=== PATIENT | female | born 1975 | race Caucasian/White ===

== ENCOUNTER 2021-03-15 09:48 | Emergency (ER) | payer MEDICAID ==
[~2021-03-15] VITALS: Ht 154.9 cm; Wt 86.4 kg
[2021-03-15 09:52] VITALS: BP 132/93
[2021-03-15] MEDS ORDERED: clonazePAM 1mg tablet PO ONE (10:35)
== END 2021-03-15 11:16 | disposition home or self-care (01) ==
LOC: ER 09:49
DX: M86.9 Osteomyelitis, unspecified (principal); Z76.0 Encounter for issue of repeat prescription
CPT/HCPCS: 99283

== ENCOUNTER 2021-03-20 08:17 | Emergency (ER) | payer MEDICAID ==
[~2021-03-20] VITALS: Ht 154.9 cm; Wt 83.3 kg
[2021-03-20 08:28] VITALS: BP 129/69
[2021-03-20 11:19] LABS: BASOPHILS % (AUTO) 0.8 % (0-1); EOSINOPHILS % (AUTO) 0.8 % (0-6); HEMATOCRIT 31.7 % (35.0-45.0); LYMPHOCYTES # (AUTO) 1.4 X10'3 (1.1-4.8); MEAN CORPUSCULAR HEMOGLOBIN 30.2 PG (27.0-31.0); MEAN CORPUSCULAR HGB CONC 34.7 g/dL (33.0-36.5); MEAN PLATELET VOLUME 9.2 FL (7.4-10.4); MONOCYTES # (AUTO) 0.4 X10'3 (0-0.9); MONOCYTES % (AUTO) 8.9 % (2-12); NEUTROPHILS # (AUTO) 2.6 X10'3 (1.8-7.7); NEUTROPHILS % (AUTO) 58.5 % (42-75); PLATELET COUNT 274 X10'3 (140-440); RED BLOOD COUNT 3.64 X10'6 (4.20-5.60); RED CELL DISTRIBUTION WIDTH 13.9 % (11.5-14.5); WHITE BLOOD COUNT 4.4 X10'3 (4.5-11.0)
[2021-03-20 11:44] LABS: ALANINE AMINOTRANSFERASE 31 U/L (12-78); ALBUMIN 3.7 G/DL (3.4-5.0); ALBUMIN/GLOBULIN RATIO 0.7 (1.1-1.5); ALKALINE PHOSPHATASE 241 IU/L (46-116); ANION GAP 8 (8-16); ASPARTATE AMINO TRANSFERASE 20 U/L (10-37); BILIRUBIN,TOTAL 0.3 MG/DL (0.1-1.0); BLOOD UREA NITROGEN 13 MG/DL (7-18); BUN/CREATININE RATIO 16.9 (6.6-38.0); CALCIUM 8.9 MG/DL (8.5-10.1); CHLORIDE 105 MMOL/L (99-107); CREATININE 0.77 MG/DL (0.40-0.90); GLUCOSE 91 MG/DL (70-104); POTASSIUM 3.9 MMOL/L (3.5-5.1); SODIUM 138 MMOL/L (135-145); TOTAL CARBON DIOXIDE 24.6 MMOL/L (24-32); TOTAL PROTEIN 8.8 G/DL (6.4-8.2); eGFR 80 ML/MIN
[2021-03-20] MEDS ORDERED: LISI10TA27 PO (12:55)
== END 2021-03-20 14:42 | disposition home or self-care (01) ==
LOC: ER 08:17
DX: I10 Essential (primary) hypertension (principal); R11.0 Nausea; R53.1 Weakness; R06.02 Shortness of breath; F11.90 Opioid use, unspecified, uncomplicated; Z56.0 Unemployment, unspecified; Z59.00 Homelessness unspecified; Z79.899 Other long term (current) drug therapy
CPT/HCPCS: 36415; 71045; 80053; 83880; 84484; 85025; 93005; 99285

== ENCOUNTER 2021-09-01 18:28 | Emergency (ER) | payer MEDICAID ==
[~2021-09-01] VITALS: Ht 154.9 cm; Wt 75.0 kg
[~2021-09-01 18:28] MED LIST: LISI10TA27 PO
[2021-09-01 18:36] VITALS: BP 128/71
[2021-09-01] MEDS ORDERED: IBUP-1985 PO (20:08)
[2021-09-01] MEDS ORDERED: AMOX-101 PO (20:08)
[2021-09-01] MEDS ORDERED: amoxicillin 250mg capsule PO ONE (20:10)
== END 2021-09-01 20:31 | disposition home or self-care (01) ==
LOC: ER 18:28
DX: K08.89 Other specified disorders of teeth and supporting structures (principal); K02.9 Dental caries, unspecified; F11.90 Opioid use, unspecified, uncomplicated; Z56.0 Unemployment, unspecified; Z59.00 Homelessness unspecified; Z79.2 Long term (current) use of antibiotics; Z79.899 Other long term (current) drug therapy
CPT/HCPCS: 99283

== ENCOUNTER 2022-04-11 09:37 | Emergency (ER) | payer MEDICAID ==
[~2022-04-11] VITALS: Ht 156.2 cm; Wt 72.7 kg
[~2022-04-11 09:37] MED LIST changes: +IBUP-1985 PO
[2022-04-11 10:21] VITALS: BP 142/69
[2022-04-11] MEDS ORDERED: ketorolac trometh. 30mg/ml inj. IM ONE (14:05)
[2022-04-11] MEDS ORDERED: amox tr/potassium clavulanate 875/125mg TAB PO ONE (14:05)
[2022-04-11] MEDS ORDERED: IBUP-1986 PO (14:08)
[2022-04-11] MEDS ORDERED: AMOX-117 PO (14:08)
== END 2022-04-11 14:47 | disposition home or self-care (01) ==
LOC: ER 09:37
DX: K08.89 Other specified disorders of teeth and supporting structures (principal); Z59.00 Homelessness unspecified; Z56.0 Unemployment, unspecified
CPT/HCPCS: 96372; 99283; J1885

== ENCOUNTER 2022-05-13 05:24 | Emergency (ER) | payer MEDICAID ==
[~2022-05-13] VITALS: Ht 154.9 cm; Wt 54.5 kg
[~2022-05-13 05:24] MED LIST changes: +IBUP-1986 PO
[2022-05-13 07:48] LABS: CHLORIDE 100 MMOL/L (99-107); POTASSIUM 3.7 MMOL/L (3.5-5.1); SODIUM 136 MMOL/L (135-145)
[2022-05-13 07:50] LABS: BASOPHILS % (AUTO) 0.2 % (0-1); EOSINOPHILS % (AUTO) 0.1 % (0-6); HEMOGLOBIN 11.5 g/dl (12.0-16.0); LYMPHOCYTES % (AUTO) 25.9 % (21-51); MEAN CORPUSCULAR HEMOGLOBIN 26.5 PG (27.0-31.0); MEAN CORPUSCULAR HGB CONC 32.8 g/dL (33.0-36.5); MEAN CORPUSCULAR VOLUME 80.6 FL (78-98); MEAN PLATELET VOLUME 9.3 FL (7.4-10.4); MONOCYTES # (AUTO) 0.5 X10'3 (0-0.9); MONOCYTES % (AUTO) 12.1 % (2-12); NEUTROPHILS # (AUTO) 2.4 X10'3 (1.8-7.7); NEUTROPHILS % (AUTO) 61.7 % (42-75); PLATELET COUNT 178 X10'3 (140-440); RED BLOOD COUNT 4.34 X10'6 (4.20-5.60); RED CELL DISTRIBUTION WIDTH 15.7 % (11.5-14.5)
[2022-05-13 07:51] LABS: ALANINE AMINOTRANSFERASE 17 U/L (12-78); ALBUMIN/GLOBULIN RATIO 1.3 (1.1-1.5); ALKALINE PHOSPHATASE 81 IU/L (46-116); ANION GAP 12 (8-16); ASPARTATE AMINO TRANSFERASE 15 U/L (10-37); BILIRUBIN,TOTAL 0.5 MG/DL (0.1-1.0); BLOOD UREA NITROGEN 8 MG/DL (7-18); CALCIUM 9.6 MG/DL (8.5-10.1); ETHANOL < 0.010 GM/DL (0.0-0.010); GLUCOSE 108 MG/DL (70-104); TOTAL CARBON DIOXIDE 23.7 MMOL/L (24-32); TOTAL PROTEIN 8.8 G/DL (6.4-8.2); eGFR 77 ML/MIN
--- NOTE | 2022-05-13 08:10 | NUR ---
PT STATES WAS AT [facility] EARLIER TODAY DUE TO HAVING HAIR DYE IN HER HAIR. PT STATES THIS HAS HAPPENED BEFORE DUE TO INCREASE IN [place]. PT STATES THINKS THE HAIR DYE FUMES CAUSED OUTBREAK AND SHE IS NOT SURE WHY SHE IS IN THE HOSPITAL. PT COOPERATIVE AT THIS TIME. WILL CONTINUE TO MONITOR.
[2022-05-13 09:56] LABS: URINE HCG NEGATIVE (NEG)
[2022-05-13 10:03] LABS: URINE AMPHETAMINE SCREEN NEGATIVE (Neg); URINE BARBITUATE SCREEN NEGATIVE (Neg); URINE BENZODIAZEPINES SCREEN NEGATIVE (Neg); URINE CANNABINOID SCREEN POSITIVE (Neg); URINE COCAINE SCREEN NEGATIVE (Neg); URINE METHADONE SCREEN NEGATIVE (Neg); URINE OPIATE SCREEN NEGATIVE (Neg); URINE PHENCYCLIDINE SCREEN NEGATIVE (Neg)
--- NOTE | 2022-05-13 10:43 | NUR ---
PT GIVEN WATER PER REQUEST
--- NOTE | 2022-05-13 12:01 | NUR ---
PT TAKEN OVER TO OVERFLOW. REPORT GIVEN TO RN
--- NOTE | 2022-05-13 12:05 | NUR ---
Patient brought over to bed 21. Patient refusing to eat lunch.
--- NOTE | 2022-05-13 12:06 | NUR ---
tech faxed pt packet to [facility]
--- NOTE | 2022-05-13 12:17 | NUR ---
breaking RN for lunch. Received report
--- NOTE | 2022-05-13 14:24 | NUR ---
[facility] here to evaluate patient.
--- NOTE | 2022-05-13 15:21 | NUR ---
Patient reports that she was on medications, but has not taken them in a while. Patient states she has a history of epilepsy. Patient was going to go into a recovery home, but never made it. Patient is oriented to person. Patient is guarded.
--- NOTE | 2022-05-13 15:38 | NUR ---
Patient was down on the ground with her eyes closed. Patient got up on her feet and started saying "amen, amen". Patient appears to be in an altered state.
[2022-05-13] MEDS ORDERED: BUPR1TAB48 PO (15:57)
[2022-05-13] MEDS ORDERED: BUSP15TA3 PO (15:57)
[2022-05-13] MEDS ORDERED: DULO20CA18 PO (15:57)
[2022-05-13] MEDS ORDERED: ZOLP10TA PO (15:57)
[2022-05-13] MEDS ORDERED: ALBU2.5V10 PO (15:57)
[2022-05-13] MEDS ORDERED: albuterol 2.5 MG/3 ML nebule NEB PRN (16:10)
[2022-05-13 17:27] LABS: CLARITY,URINE CLOUDY (Clear); COLOR,URINE YELLOW (Yellow); GLUCOSE, URINE NEGATIVE (Neg); KETONES,URINE TRACE mg/dl (Neg); LEUKOCYTE ESTERASE ,URINE NEGATIVE (Neg); NITRITES, URINE NEGATIVE (Neg); OCCULT BLOOD,URINE NEGATIVE (Neg); PROTEIN,URINE NEGATIVE (Neg); UROBILINOGEN,URINE 0.2 E.U/dL (0.2-1.0)
[2022-05-13 17:42] LABS: UA COLLECTION TYPE NON-SPECIFIED
[2022-05-13 17:44] LABS: CAL OXALATE CRYSTALS 3+ /HPF (NEGATIVE)
[2022-05-13 17:45] LABS: BACTERIA,URINE FEW /HPF (Neg); MUCUS STRANDS MODERATE /LPF (Neg); RBC,URINE 0-2 /HPF (0-2); SQUAMOUS EPITHELIAL CELL,UR MODERATE /LPF (FEW); WBC,URINE 0-4 /HPF (0-4)
--- NOTE | 2022-05-13 17:50 | NUR ---
Faxed over TSH and U/A to [facility].
--- NOTE | 2022-05-13 18:32 | NUR ---
PT IS SITTING IN BED IN ER ROOM 13. PT IS AWAKE AND APPEARS TO BE IN NO DISRESS AT THIS TIME.
--- NOTE | 2022-05-13 20:00 | NUR ---
PT IS ATTEMPTING TO WANDER THE HALLWAY. PT REDIRECTED TO ROOM AND INFORMED SHE CAN NOT LEAVE HER ROOM. PT RELUCTANTLY RETURNED TO ROOM.
--- NOTE | 2022-05-13 20:36 | NUR ---
PT REFUSING TO ANSWER MANY OF THE GENERAL ASSESSMENT QUESTIONS.
[2022-05-13] MEDS ORDERED: OLANZapine 2.5MG tablet PO ONE (20:40)
--- NOTE | 2022-05-13 20:45 | NUR ---
I agree with Alexandria Craft assessment.
[2022-05-13] MEDS: duloxetine 20mg capsule.DR PO SCH (20:51)
[2022-05-13] MEDS: busPIRone 15mg tablet PO SCH (20:51)
[2022-05-13] MEDS ORDERED: zolpidem 5mg tablet PO PRN (21:00)
--- NOTE | 2022-05-13 21:59 | NUR ---
PT SITTING IN BED AFTER RECIEVING EVENING MEDS. PT VERY APPREHENSIVE TO TAKE MEDS.
--- NOTE | 2022-05-13 22:07 | NUR ---
PT ON THE GROUND FAKING SEIZURE ACTIVITY. PT PLACED BACK IN BED.
--- NOTE | 2022-05-13 22:17 | NUR ---
pt was laying on the floor, put back to bed. Now she has crawled out of bed a few times. Informed her that she needs to stay in bed and behave. Security is at the doorway. Informed the patient that since I have been here, she has tried to run away multiple times and that this is not tolerated and that if her behavior continues she will received medications and possible restraints to keep her safe. Sitters have been at her doorway all night and staff and sitters have had to intervene since we arrived. She didn't want to take her HS meds earlier from her nurse, she did take them for me. There are times she has eye contact and other times not. When we picked her from the floor she did try to hit myself and Lazara but we were able to not have that occur. The pt shook her head to lay in bed and be quiet. I covered her up. Sitter at doorway.
--- NOTE | 2022-05-13 22:20 | NUR ---
SECURITY CALLED FOR A STAND BY WHILE PT WAS PLACED BACK IN BED AFTER GETTING OUT OF BED AGAIN. PT PLACED BACK IN BED AND INFORMED THAT SHE IS TO STAY IN BED.
--- NOTE | 2022-05-14 05:59 | NUR ---
PT REMOVED FROM RESTRAINTS.
--- NOTE | 2022-05-14 06:30 | NUR ---
Pt. ambulated over from the main ER accompanied by Nadeem. She is laying in bed at this time and appears to be resting comfortably.
[2022-05-14] MEDS ORDERED: ZUBSOLV PO SCH (08:00)
[2022-05-14] MEDS: busPIRone 15mg tablet PO SCH ×3 (08:00→21:06)
[2022-05-14] MEDS: duloxetine 20mg capsule.DR PO SCH ×3 (08:00→21:06)
--- NOTE | 2022-05-14 08:35 | NUR ---
Received a call from [facility] who is looking into taking patient, however they will call back in a couple of hours because pt. must be free from restraint X4 hours per their protocol.
--- NOTE | 2022-05-14 08:37 | NUR ---
Pt. is laying in bed on her back at this time, she refused her ordered medications and breakfast, however appears to be resting comfortably. RR are even and unlabored.
--- NOTE | 2022-05-14 09:45 | NUR ---
TSH and UA labs faxed to [facility] per their request.
--- NOTE | 2022-05-14 10:33 | NUR ---
Pt. is sitting up in bed at this time, she is observed to be responding aloud, whispering to herself. Pt. continues to refuse to take medications, but does not appear to be in any distress at this time, will continue to monitor closely.
--- NOTE | 2022-05-14 12:24 | NUR ---
Pt. up wandering on the unit and remains confused asking to talk "To her father." She was able to be redirected back to bed, but then had an elopement attempt out the frount da exit. Pt. was again redirected back to her bed where she is being encouraged to eat at this time. Pt. did accept some juices. She denies the desire to use the telephone to call her father at this time. Will continue to monitor closely.
--- NOTE | 2022-05-14 13:30 | NUR ---
Pt. was in the [facility] at [facility]. Her Translator Interpreter is Karen (extension 2). Per Karen, pt. has been in this program since 05/05/22, but left abruptly yesterday (she had been weaning off Clonazepam). Pt. was taking a medication called Zubsolv which the [facility] staff will drop off as the hospital does not carry this. Pt. has been released from the [facility] program at this point, but per Karen can reapply in 30 days. Initially Karen stated that pt's belongings would be discarded in 7 days unless she had a family member that could pick them up. However, pt. denies having anyone to do so, and this telegraphic typewriter installer called [place] back and [facility] will now hold on to all of the patient's belongings and medications. Per Karen, she would like to be notified if pt. is transferred to another facilty as she is hopeful the client will be able to come back into the program. Will endorse to staff.
--- NOTE | 2022-05-14 14:29 | NUR ---
Pt. is laying in bed at this time staring at the ceiling, will continue to monitor closely.
--- NOTE | 2022-05-14 14:35 | NUR ---
Pt's disease case manager dropped off all of her current medications and this health underwriter will reconcile them and re-complete Med Recc.
--- NOTE | 2022-05-14 15:07 | NUR ---
Pt. began yelling loudly and appeared to be speaking in a nonsensical manner. This mortgage or loan underwriter sat with pt. and provided active listening and positive encouragement. Pt. stated in a disorganized manner, "I'm going to walk with the lord!" She was able to be redirected and will continue to monitor closely.
[2022-05-14] MEDS ORDERED: LORazepam 2 mg/ml vial IM ONE ×2 (15:40→21:30)
--- NOTE | 2022-05-14 15:50 | NUR ---
Pt. continued to yell out intermittenty in a very disorganized and non-sensical manner, she was unable to be redirected. Received an order from [facility] for Ativan IM 2mg. Injection was given in the left deltoid and pt. tolerated well.
[2022-05-14] MEDS ORDERED: nicotine 14mg patch - 24hr TD ONE (16:35)
--- NOTE | 2022-05-14 16:38 | NUR ---
Pt. ambulating around the unit at this time, requires redirection at intervals r/t intrusiveness.
[2022-05-14] MEDS ORDERED: LISI10TA27 PO (17:47)
[2022-05-14] MEDS ORDERED: MONT-40 PO (17:47)
[2022-05-14] MEDS ORDERED: PANT40TA54 PO (17:47)
[2022-05-14] MEDS ORDERED: LORA10TA7 PO (17:47)
[2022-05-14] MEDS ORDERED: SENN-263 PO (17:47)
[2022-05-14] MEDS ORDERED: NICO-631 TD (17:47)
[2022-05-14] MEDS ORDERED: IBUP-1986 PO (17:47)
[2022-05-14] MEDS ORDERED: DOCU100C40 PO (17:47)
[2022-05-14] MEDS ORDERED: VENL150T3 PO (17:47)
[2022-05-14] MEDS ORDERED: NAPR-56 PO (17:47)
[2022-05-14] MEDS ORDERED: ONDA4TAB12 PO (17:47)
[2022-05-14] MEDS ORDERED: docusate sod 100mg capsule PO PRN (18:10)
--- NOTE | 2022-05-14 18:24 | NUR ---
Pt. is sitting in bed eating at this time, she continues to require redirection at intervals with effectiveness r/t intrusiveness and restlessness.
--- NOTE | 2022-05-14 18:56 | NUR ---
informed pt is up and walking towards doorway frequently. Bertha talk to the patient. She is now laying down.
--- NOTE | 2022-05-14 18:56 | NUR ---
Partha Jackson called for the patients medication list. Fax it to [phone]
--- NOTE | 2022-05-14 19:30 | NUR ---
I agree with A Alexandria Noe assessment.
[2022-05-14] MEDS ORDERED: naproxen 500mg tablet PO SCH (20:00)
[2022-05-14] MEDS ORDERED: montelukast 10mg tablet PO SCH (21:00)
[2022-05-14] MEDS: ondansetron 4mg rapidly disintigrating tab PO SCH (21:06)
[2022-05-14] MEDS: ZUBSOLV PO SCH (21:07)
--- NOTE | 2022-05-14 21:47 | NUR ---
NIGHTTIME MEDICATION WAS GIVEN TO PT, HOWEVER DUE TO INCREASED AGITATION AND CONFUSION SHE WAS NOT ABLE TO BE REDIRECTED. SECURITY WAS CALLED, AND THE EDMD WAS NOTIFIED. RESTRAINTS WERE APPLIED TO THE PT DUE TO THE PT BEHAVIOR. EDMD WAS NOTIFIED.
--- NOTE | 2022-05-14 22:18 | NUR ---
RANDOLPHTER IS WITH PT CURRENTLY. SPEAKING TO THE PT, AND ATTEMPTING TO HELP WITH THE PT REORIENTATION DUE TO ANOTHER PT SCREAMING AND NOT BEING ABLE TO BE REORIENTED. THIS TX. APPEARS TO BE EFFECTIVE. WILL CONTINUE TO MONITOR BEHAVIOR.
--- NOTE | 2022-05-14 23:05 | NUR ---
THERAPEUTIC COMMUNICATION APPEARS TO HAVE HELPED CALM THE PT DOWN. RESTRAINTS WERE REMOVED DUE TO PT BEING ABLE TO BE REDIRECTED. WILL CONTINUE TO MONITOR HER BEHAVIOR.
--- NOTE | 2022-05-15 06:45 | NUR ---
PT LAYING ON R SIDE RESTING WITH EYES CLOSED, EFFORTLESS RESPIRATIONS OBSERVED.
[2022-05-15] MEDS: ZUBSOLV PO SCH ×2 (08:00→13:00)
[2022-05-15] MEDS: nicotine 14mg patch - 24hr TD SCH ×2 (08:00→08:56)
--- NOTE | 2022-05-15 08:17 | NUR ---
ASSUMED CARE OF PT. REPORT RECEIVED FROM MIRIAM DIEHL. PT RESTING WITH EYES CLOSED, APPEARS TO SHOW NO S/S OF ACUTE DISTRESS. BED LOCKED AND LOW, IN LINE OF SIGHT.
[2022-05-15] MEDS: lisinopril 10 MG tablet PO SCH ×2 (08:52→13:47)
[2022-05-15] MEDS: pantoprazole 40mg Tablet.DR PO SCH ×2 (08:53→13:46)
[2022-05-15] MEDS: sennosides 8.6mg tablet PO SCH ×2 (08:54→13:47)
[2022-05-15] MEDS: ondansetron 4mg rapidly disintigrating tab PO SCH ×2 (08:54→13:47)
[2022-05-15] MEDS: ibuprofen 200mg tablet PO SCH ×3 (08:56→13:47)
[2022-05-15] MEDS: duloxetine 20mg capsule.DR PO SCH ×2 (08:57→13:47)
[2022-05-15] MEDS: loratadine 10mg tablet PO SCH ×2 (08:57→13:46)
[2022-05-15] MEDS: busPIRone 15mg tablet PO SCH ×3 (08:57→13:56)
[2022-05-15] MEDS: venlafaxine XR 75mg capsule (Q24H) PO SCH ×2 (09:00→13:47)
[2022-05-15 09:11] VITALS: BP_DIAS 86
--- NOTE | 2022-05-15 09:40 | NUR ---
I WOKE PT TO ASSESS HER AND GET HER VITALS. PT WAS COOPERATIVE. PT NODDED YES WHEN I ASKED HER IF SHE WILL TAKE HER PRESCRIBED MEDICATION. MEDICATION EDUCATION WAS PROVIDED AND PT WAS HANDED HER MEDICATIONS. PT HELD THE MEDICATION CUP IN HER HAND SHE ASKED ,E "WHY AM I BACK IN THE HOSPITAL?". I EXPLAINED TO HER THAT SHE HAS BEEN PLACED ON A 5150 HOLD FOR HER SAFETY, I EXPLAINED THAT ACCORDING TO WHAT I RECEIVED IN REPORT AND PER CHARTING SHE HAS HAD HALLUCINATIONS AND DID NOT SEEM TO BE PRESENT OR OF SOUND MIND. PT WAS ORIENTED TO DATE AND TIME. SHE KNEW SHE WAS IN [facility]. PT IS TEARFUL AND HESITANT TO TAKE HER MEDS. I EXPLAINED EACH MEDICATION TO HER AGAIN AND GAVE INDICATION AND SIDE EFFECTS. PT SEEMS TO BE WITHDRAWN AND REMAINS TEARFUL. PT REQUESTING TO SPEAK TO [facility] AND ASKING TO WAIT TO TAKE HER MEDS BECAUSE MANY OF THEM ARE NEW. I TOLD HER I WILL TRY TO REACH AND WILL HOLD HER MEDS FOR NOW.
--- NOTE | 2022-05-15 10:06 | NUR ---
SPOKE WITH MONIKA (NURSE FROM [facility]) REGARDING PT PLACEMENT. WAS INFORMED THAT IN ORDER FOR PT TO BE PLACED WITH THIS FACILITY SHE WILL NEED TO HAVE FULL 30 DAY SUPPLY OF HER RX ZUBSOLV (SUBOXONE). PER OUR PHARMACY SHE HAS A QUANTITY OF 83. RX IS 1 UNIT TID. [facility] ([place]) WAS UPDATED WITH RX INFORMATION AND MADE AWARE THAT PT HAS ENOUGH FOR 26 DAYS WITH HER CURRENT QUANTITY.
--- NOTE | 2022-05-15 13:17 | NUR ---
PT BECOMING EMOTIONAL, CRYING, KNEELING ON THE GROUND WITH HER HEAD IN HER HANDS. PT REDIRECTED AND SAT AND TALKED WITH ME FOR ABOUT 30 MINS. PT THOUGHT WE WERE IN THE TIME OF [place] AND IS REFUSING FOOD AND MEDS. I EXPLAINED THAT I WASNT AWARE THAT WE ARE IN [place] AT THIS TIME AND I THOUGHT IT WAS IN AUGUST. PT STATED SHE "FORGOT SHE WAS JEW". PT TOLD ME SHE HAS BEEN TRYING TO STAY CLEAN SINCE HER PASSED IN JULY. AFTER SOME THERAPEUTIC CONVERSATION SHE WAS ABLE TO CALM DOWN. SHE CONTINUES TO REFUSE HER MEDICATION. PT STATED "I HAVE SO MANY THOUGHTS BUT I DONT KNOW WHAT I AM SUPPOSED TO SAY." I OFFERED HER SOME PAPER AND CRAYONS TO WRITE HER THOUGHTS. SHE WAS ACCEPTING.
--- NOTE | 2022-05-15 13:40 | NUR ---
PT HAS BEEN ACCEPTED TO [facility]. PROVIDER GARFIELD MCGREGOR. ARRIVAL TIME [id number]
[2022-05-15 13:47] VITALS: BP_SYST 128
--- NOTE | 2022-05-15 13:59 | NUR ---
PT ASKED FOR AND WILLINGLY TOOK HER MORNING MEDS.
--- NOTE | 2022-05-15 14:26 | NUR ---
PT WAS PICKED UP BY JENNIFER (INSURANCE LOSS CONTROL SURVEYOR FOR [facility]). ALL PT MEDICATION INCLUDING SUBOXONE WAS HANDED TO [facility] INSURANCE LOSS CONTROL SURVEYOR. PT ESCORTED OUT BY SECURITY FOR TRANSPORT.
== END 2022-05-15 14:26 ==
LOC: ER 05:24
DX: Z73.6 Limitation of activities due to disability (principal); Z20.822 Contact with and (suspected) exposure to COVID-19; Z59.00 Homelessness unspecified; Z56.0 Unemployment, unspecified
CPT/HCPCS: 36415; 80053; 80305; 80320; 80329; 81001; 81025; 84443; 85025; 87811; 99285; J2060

== ENCOUNTER 2022-06-27 05:16 | Emergency (ER) | payer MEDICAID ==
[~2022-06-27] VITALS: Ht 154.9 cm; Wt 63.0 kg
[~2022-06-27 05:16] MED LIST changes: +ALBU2.5V10 PO; +BUPR1TAB48 PO; +BUSP15TA3 PO; +DOCU100C40 PO; +DULO20CA18 PO; -IBUP-1985 PO; +LORA10TA7 PO; +MONT-40 PO; +NAPR-56 PO; +NICO-631 TD; +ONDA4TAB12 PO; +PANT40TA54 PO; +SENN-263 PO; +VENL150T3 PO; +ZOLP10TA PO
[2022-06-27] MEDS ORDERED: haloperidol 5mg tablet PO ONE (06:45)
[2022-06-27] MEDS ORDERED: nicotine 14mg patch - 24hr TD ONE (06:45)
[2022-06-27] MEDS ORDERED: LORazepam 1 MG tablet PO ONE (06:45)
[2022-06-27] MEDS ORDERED: diphenhydrAMINE 25 MG/10 ML UD oral solution PO ONE (07:00)
--- NOTE | 2022-06-27 07:20 | NUR ---
Patient repeatedly walking and occasionally running out of room yelling. Patient states, "I want a cigarette". Provider ordered nicotine patch. Patient aware that she will be evaluated by mental health provider. Patient in agreement with plan. She states, "I want to go back to the facility".
[2022-06-27 07:52] LABS: ALANINE AMINOTRANSFERASE 23 U/L (12-78); ALBUMIN 4.2 G/DL (3.4-5.0); ALKALINE PHOSPHATASE 78 IU/L (46-116); ANION GAP 9 (8-16); ASPARTATE AMINO TRANSFERASE 27 U/L (10-37); BILIRUBIN,TOTAL 0.2 MG/DL (0.1-1.0); BLOOD UREA NITROGEN 25 MG/DL (7-18); BUN/CREATININE RATIO 26.9 (6.6-38.0); CALCIUM 8.8 MG/DL (8.5-10.1); CHLORIDE 101 MMOL/L (99-107); CREATININE 0.93 MG/DL (0.40-0.90); ETHANOL < 0.010 GM/DL (0.0-0.010); GLUCOSE 106 MG/DL (70-104); POTASSIUM 3.9 MMOL/L (3.5-5.1); SODIUM 138 MMOL/L (135-145); TOTAL CARBON DIOXIDE 27.6 MMOL/L (24-32); TOTAL PROTEIN 8.5 G/DL (6.4-8.2); eGFR 64 ML/MIN
[2022-06-27 07:53] LABS: BASOPHILS % (AUTO) 0.3 % (0-1); EOSINOPHILS % (AUTO) 0.2 % (0-6); HEMATOCRIT 32.2 % (35.0-45.0); HEMOGLOBIN 10.7 g/dl (12.0-16.0); LYMPHOCYTES # (AUTO) 1.2 X10'3 (1.1-4.8); LYMPHOCYTES % (AUTO) 35.8 % (21-51); MEAN CORPUSCULAR HEMOGLOBIN 26.2 PG (27.0-31.0); MEAN CORPUSCULAR HGB CONC 33.1 g/dL (33.0-36.5); MEAN CORPUSCULAR VOLUME 79.2 FL (78-98); MEAN PLATELET VOLUME 8.3 FL (7.4-10.4); MONOCYTES # (AUTO) 0.6 X10'3 (0-0.9); MONOCYTES % (AUTO) 16.6 % (2-12); NEUTROPHILS # (AUTO) 1.6 X10'3 (1.8-7.7); NEUTROPHILS % (AUTO) 47.1 % (42-75); PLATELET COUNT 212 X10'3 (140-440); RED BLOOD COUNT 4.07 X10'6 (4.20-5.60); RED CELL DISTRIBUTION WIDTH 17.1 % (11.5-14.5); WHITE BLOOD COUNT 3.4 X10'3 (4.5-11.0)
--- NOTE | 2022-06-27 08:24 | NUR ---
Regular diet, caution tray ordered for patient. Paperwork faxed to dietary.
[2022-06-27 09:12] LABS: TOTAL CELLS COUNTED 100
[2022-06-27 09:13] LABS: ANISOCYTOSIS 1+; MICROCYTOSIS 1+; PLATELET ESTIMATE NORMAL
[2022-06-27 09:14] LABS: ELLIPTOCYTES FEW; POLYCHROMASIA FEW; TEAR DROP CELLS FEW
[2022-06-27 09:39] VITALS: BP 100/46
[2022-06-27] MEDS ORDERED: diphenhydrAMINE 25mg capsule PO ONE (11:41)
[2022-06-27 12:07] LABS: CLARITY,URINE CLEAR (Clear); COLOR,URINE YELLOW (Yellow); GLUCOSE, URINE NEGATIVE (Neg); KETONES,URINE NEGATIVE (Neg); LEUKOCYTE ESTERASE ,URINE NEGATIVE (Neg); NITRITES, URINE NEGATIVE (Neg); OCCULT BLOOD,URINE NEGATIVE (Neg); PROTEIN,URINE NEGATIVE (Neg); UROBILINOGEN,URINE 0.2 E.U/dL (0.2-1.0)
[2022-06-27 12:08] LABS: URINE HCG NEGATIVE (NEG)
[2022-06-27 12:13] LABS: UA COLLECTION TYPE CLN CATCH MIDSTREAM
[2022-06-27 12:21] LABS: URINE AMPHETAMINE SCREEN NEGATIVE (Neg); URINE BARBITUATE SCREEN NEGATIVE (Neg); URINE BENZODIAZEPINES SCREEN NEGATIVE (Neg); URINE CANNABINOID SCREEN NEGATIVE (Neg); URINE COCAINE SCREEN NEGATIVE (Neg); URINE METHADONE SCREEN NEGATIVE (Neg); URINE OPIATE SCREEN NEGATIVE (Neg); URINE PHENCYCLIDINE SCREEN NEGATIVE (Neg)
--- NOTE | 2022-06-27 13:30 | NUR ---
PACKET FAXED TO [facility]
--- NOTE | 2022-06-27 15:07 | NUR ---
Mental health specialist at bedside.
[2022-06-28] MEDS ORDERED: QUET400T54 PO (17:54)
[2022-06-28] MEDS ORDERED: HYDR50TA65 PO (17:54)
[2022-06-28] MEDS ORDERED: BUSP10TA3 PO (17:54)
[2022-06-28] MEDS ORDERED: HALO5TAB PO (17:54)
[2022-06-28] MEDS ORDERED: MELA3TAB41 PO (17:54)
== END 2022-06-27 17:21 | disposition home or self-care (01) ==
LOC: ER 05:16
DX: G25.71 Drug induced akathisia (principal); Z20.822 Contact with and (suspected) exposure to COVID-19; R44.0 Auditory hallucinations; Z59.00 Homelessness unspecified; Z56.0 Unemployment, unspecified; Z79.899 Other long term (current) drug therapy; Z79.1 Long term (current) use of non-steroidal anti-inflammatories (NSAID); Z79.2 Long term (current) use of antibiotics
CPT/HCPCS: 36415; 80053; 80305; 80320; 81003; 81025; 85007; 85025; 99285; Q0163

== ENCOUNTER 2022-06-27 20:05 | Emergency (ER) | payer MEDICAID ==
[~2022-06-27] VITALS: Ht 154.9 cm; Wt 65.9 kg
[2022-06-28 02:39] LABS: BASOPHILS % (AUTO) 0.4 % (0-1); EOSINOPHILS % (AUTO) 0.2 % (0-6); HEMOGLOBIN 10.7 g/dl (12.0-16.0); LYMPHOCYTES # (AUTO) 1.6 X10'3 (1.1-4.8); LYMPHOCYTES % (AUTO) 32.3 % (21-51); MEAN CORPUSCULAR HEMOGLOBIN 26.5 PG (27.0-31.0); MEAN CORPUSCULAR HGB CONC 33.5 g/dL (33.0-36.5); MEAN CORPUSCULAR VOLUME 79.1 FL (78-98); MEAN PLATELET VOLUME 8.2 FL (7.4-10.4); MONOCYTES # (AUTO) 0.5 X10'3 (0-0.9); MONOCYTES % (AUTO) 10.7 % (2-12); NEUTROPHILS # (AUTO) 2.9 X10'3 (1.8-7.7); NEUTROPHILS % (AUTO) 56.4 % (42-75); PLATELET COUNT 220 X10'3 (140-440); RED BLOOD COUNT 4.04 X10'6 (4.20-5.60); RED CELL DISTRIBUTION WIDTH 17.2 % (11.5-14.5); WHITE BLOOD COUNT 5.1 X10'3 (4.5-11.0)
[2022-06-28 02:48] LABS: ALANINE AMINOTRANSFERASE 20 U/L (12-78); ALBUMIN 3.9 G/DL (3.4-5.0); ALKALINE PHOSPHATASE 78 IU/L (46-116); ANION GAP 9 (8-16); ASPARTATE AMINO TRANSFERASE 16 U/L (10-37); BILIRUBIN,TOTAL 0.3 MG/DL (0.1-1.0); BLOOD UREA NITROGEN 19 MG/DL (7-18); BUN/CREATININE RATIO 26.4 (6.6-38.0); CALCIUM 9.1 MG/DL (8.5-10.1); CHLORIDE 103 MMOL/L (99-107); CREATININE 0.72 MG/DL (0.40-0.90); GLUCOSE 96 MG/DL (70-104); POTASSIUM 3.8 MMOL/L (3.5-5.1); SODIUM 141 MMOL/L (135-145); TOTAL PROTEIN 7.9 G/DL (6.4-8.2); eGFR 86 ML/MIN
[2022-06-28 03:30] LABS: ETHANOL < 0.010 GM/DL (0.0-0.010)
[2022-06-28 07:11] VITALS: BP 149/103
[2022-06-28 07:58] LABS: URINE HCG NEGATIVE (NEG)
[2022-06-28 08:09] LABS: URINE AMPHETAMINE SCREEN NEGATIVE (Neg); URINE BARBITUATE SCREEN NEGATIVE (Neg); URINE BENZODIAZEPINES SCREEN NEGATIVE (Neg); URINE CANNABINOID SCREEN NEGATIVE (Neg); URINE COCAINE SCREEN NEGATIVE (Neg); URINE METHADONE SCREEN NEGATIVE (Neg); URINE OPIATE SCREEN NEGATIVE (Neg); URINE PHENCYCLIDINE SCREEN NEGATIVE (Neg)
--- NOTE | 2022-06-28 08:49 | NUR ---
Pt currently sleeping, breathing normally.
--- NOTE | 2022-06-28 09:10 | NUR ---
FELIPE CORDOBA FAXED TO [facility]
[2022-06-28] MEDS ORDERED: albuterol 2.5 MG/3 ML nebule NEB PRN (09:25)
[2022-06-28] MEDS ORDERED: docusate sod 100mg capsule PO PRN (09:25)
[2022-06-28] MEDS: busPIRone 15mg tablet PO SCH ×2 (12:34→20:26)
[2022-06-28] MEDS: BUPRENORPHINE HCL PO SCH ×2 (13:00→20:33)
[2022-06-28] MEDS: NALOXONE HCL PO SCH ×2 (13:00→20:33)
[2022-06-28] MEDS ORDERED: ibuprofen tablet 400 MG TABLET PO SCH (16:00)
[2022-06-28] MEDS ORDERED: QUET400T54 PO (17:54)
[2022-06-28] MEDS ORDERED: HYDR50TA65 PO (17:54)
[2022-06-28] MEDS ORDERED: BUSP10TA3 PO (17:54)
[2022-06-28] MEDS ORDERED: MELA3TAB41 PO (17:54)
[2022-06-28] MEDS ORDERED: HALO5TAB PO (17:54)
[2022-06-28 18:01] LABS: URINE AMPHETAMINE SCREEN NEGATIVE (Neg); URINE BARBITUATE SCREEN NEGATIVE (Neg); URINE BENZODIAZEPINES SCREEN NEGATIVE (Neg); URINE CANNABINOID SCREEN NEGATIVE (Neg); URINE COCAINE SCREEN NEGATIVE (Neg); URINE METHADONE SCREEN NEGATIVE (Neg); URINE OPIATE SCREEN NEGATIVE (Neg); URINE PHENCYCLIDINE SCREEN NEGATIVE (Neg)
[2022-06-28] MEDS ORDERED: duloxetine 20mg capsule.DR PO SCH (20:00)
[2022-06-28] MEDS ORDERED: ondansetron 4mg rapidly disintigrating tab PO SCH (20:00)
[2022-06-28] MEDS ORDERED: naproxen 500mg tablet PO SCH (20:00)
[2022-06-28] MEDS ORDERED: montelukast 10mg tablet PO SCH (21:00)
[2022-06-28] MEDS ORDERED: zolpidem 5mg tablet PO SCH (21:00)
[2022-06-29 04:09] LABS: CLARITY,URINE SLIGHTLY CLOUDY (Clear); GLUCOSE, URINE NEGATIVE (Neg); KETONES,URINE NEGATIVE (Neg); LEUKOCYTE ESTERASE ,URINE NEGATIVE (Neg); NITRITES, URINE NEGATIVE (Neg); OCCULT BLOOD,URINE NEGATIVE (Neg); PH,URINE 6.5 (4.8-8.0); PROTEIN,URINE NEGATIVE (Neg); UROBILINOGEN,URINE 0.2 E.U/dL (0.2-1.0)
[2022-06-29 04:34] LABS: COLOR,URINE YELLOW (Yellow); UA COLLECTION TYPE NON-SPECIFIED
[2022-06-29 04:35] LABS: BACTERIA,URINE FEW /HPF (Neg); RBC,URINE 0-2 /HPF (0-2); SQUAMOUS EPITHELIAL CELL,UR MANY /LPF (FEW); TRANSITIONAL EPI CELLS,URINE FEW /HPF; WBC,URINE 0-4 /HPF (0-4)
[2022-06-29] MEDS ORDERED: pantoprazole 40mg Tablet.DR PO SCH (08:00)
[2022-06-29] MEDS ORDERED: nicotine 14mg patch - 24hr TD SCH (08:00)
[2022-06-29] MEDS ORDERED: lisinopril 10 MG tablet PO SCH (08:00)
[2022-06-29] MEDS ORDERED: loratadine 10mg tablet PO SCH (08:00)
[2022-06-29] MEDS ORDERED: venlafaxine XR 75mg capsule (Q24H) PO SCH (08:00)
[2022-06-29] MEDS ORDERED: sennosides 8.6mg tablet PO SCH (08:00)
== END 2022-06-28 21:37 ==
LOC: ER 20:05
DX: R45.851 Suicidal ideations (principal); Z20.822 Contact with and (suspected) exposure to COVID-19; R44.3 Hallucinations, unspecified; F17.200 Nicotine dependence, unspecified, uncomplicated; Z79.2 Long term (current) use of antibiotics; Z59.00 Homelessness unspecified; Z56.0 Unemployment, unspecified; Z79.899 Other long term (current) drug therapy; Z79.1 Long term (current) use of non-steroidal anti-inflammatories (NSAID)
CPT/HCPCS: 36415; 80053; 80305; 80320; 81001; 81025; 84443; 85025; 99285